=== PATIENT | female | born 2000 | race Asian ===

== ENCOUNTER 2022-02-25 08:03 | Emergency (ER) | payer OTHER ==
[~2022-02-25] VITALS: Ht 162.6 cm; Wt 54.5 kg
[2022-02-25] MEDS ORDERED: APRITAB PO (08:17)
[2022-02-25 10:14] VITALS: BP 109/58
== END 2022-02-25 10:25 | disposition home or self-care (01) ==
LOC: M ED 08:03
DX: S93.601A Unspecified sprain of right foot, initial encounter (principal); Y99.1 Military activity; Z79.3 Long term (current) use of hormonal contraceptives